=== PATIENT | female | born 1990 | race Caucasian/White ===

== ENCOUNTER 2017-04-13 20:24 | Emergency (ER) | payer SELFPAY ==
[~2017-04-13] VITALS: Ht 172.7 cm; Wt 113.6 kg
[~2017-04-13 20:24] MED LIST: LO/OVRAL-21 301 TAB PO; NO HOME MEDICATIONS; PRENATAL1 TA2 PO
[2017-04-13 20:26] VITALS: BP 140/81; TEMP 101
[2017-04-13 21:01] LABS: INFLUENZA A POSITIVE; INFLUENZA B NEGATIVE
[2017-04-13 21:36] VITALS: PULSE 88
== END 2017-04-13 21:37 | disposition home or self-care (01) ==
LOC: COL.ER 20:24
PROVIDERS: Nurse Practitioner
DX: J09.X2 Influenza due to identified novel influenza A virus with other respiratory manifestations (principal); Z90.49 Acquired absence of other specified parts of digestive tract; F17.210 Nicotine dependence, cigarettes, uncomplicated